=== PATIENT | female | born 1995 | race Caucasian/White ===

== ENCOUNTER 2024-03-01 14:23 | Inpatient (IN) ==
[2024-03-01 15:10] LABS: Appearance Urine Clear (Clear); Bilirubin Urine Negative (Negative); Blood Urine Negative (Negative); Color Urine Yellow; Glucose Urine UA Negative (Negative); Ketones Urine Negative (Negative); Leukocyte Esterase Urine Negative (Negative); Nitrite Urine Negative (Negative); Protein Urine Negative (Negative); Specific Gravity Urine 1.006 (1.000-1.030); Urobilinogen Urine Negative (Negative)
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
[2024-03-01 15:13] LABS: Basophils # (auto) 0.05 K/uL (0.00-0.20); Basophils % (auto) 0.5 %; Eosinophils # (auto) 0.22 K/uL (0.00-0.50); Eosinophils % (auto) 2.3 %; Hematocrit (blood only) 41.2 % (37.0-47.0); Hemoglobin 13.1 g/dl (12.0-16.0); Immature Granulocytes # (auto) 0.03 K/uL (0.01-0.20); Immature Granulocytes % (auto) 0.3 %; Lymphocytes # (auto) 2.81 K/uL (1.20-3.40); Lymphocytes % (auto) 29.7 %; Mean Corpuscular Hemoglobin 27.6 pg (25.0-34.0); Mean Corpuscular Hgb Conc 31.8 g/dL (32.0-36.0); Mean Corpuscular Volume 86.9 fL (80.0-100.0); Mean Platelet Volume 10.1 fL (9.4-12.4); Monocytes # (auto) 0.68 K/uL (0.11-0.59); Monocytes % (auto) 7.2 %; Neutrophils # (auto) 5.68 K/uL (1.40-6.50); Platelet Count 314 K/uL (130-400); RDW Coefficient of Variation 13.5 % (11.5-14.5); Red Blood Count 4.74 M/uL (4.20-5.40); White Blood Count 9.47 K/ul (4.8-10.8)
[2024-03-01 15:28] LABS: Pregnancy Test, Serum Negative (Negative)
[2024-03-01 15:34] LABS: Albumin Globulin Ratio 1.7 (0.9-2); Albumin Level 4.7 gm/dl (3.4-5.0); BUN Creatinine Ratio 9.2 (10-20); Bilirubin,Total 0.4 mg/dl (0.2-1.0); Creatinine Clr Calc Pharmacy 155.1 ml/min; Est GFR (African American) 121.1 ml/min; Est GFR (Non-African American) 104.5 ml/min; Globulin 2.7 gm/dl (2.5-4.0); Potassium 4.2 mmol/L (3.5-5.1); Total Protein 7.4 gm/dl (6.0-8.3)
[2024-03-01 15:44] LABS: Amphetamines+Metham, Urine Neg (Neg); Barbiturates, Urine Neg (Neg); Benzodiazepine, Urine Neg (Neg); Cocaine, Urine Neg (Neg); Fentanyl, Urine Neg (Neg); MDMA (Ecstacy), Urine Neg (Neg); Marijuana, Urine Neg (Neg); Methadone, Urine Neg (Neg); Opiate, Urine Neg (Neg); Phencyclidine, Urine Neg (Neg)
[2024-03-01 15:48] LABS: Thyroid Stimulating Hormone 1.581 uIu/ml (0.300-4.500)
[2024-03-01 15:50] LABS: Acetaminophen < 3 ug/ml (10-30); Salicylate < 3.0 mg/dl (3.0-30)
[2024-03-01] MEDS ORDERED: SODIUM CHLORIDE 0.65% NA SOLN 45 ML (OCEAN) PRN (17:09)
[2024-03-01] MEDS ORDERED: BISMUTH SUBSALICYLATE LIQD 236 ML PO PRN (17:09)
[2024-03-01] MEDS ORDERED: MAGNESIUM HYDROXIDE SUSP 30 ML UDC PO PRN (17:09)
[2024-03-01] MEDS ORDERED: ALUMINUM/MAGNESIUM SUSP 30 ML UDC PO PRN (17:09)
[2024-03-01] MEDS ORDERED: risperiDONE 0.25 MG TAB PO PRN (17:41)
[2024-03-01] MEDS: PANTOprazole 40 MG TAB PO SCH (19:04)
[2024-03-01] MEDS: lamoTRIgine 25 MG TAB PO SCH (21:06)
[2024-03-01] MEDS: hydrOXYzine HCl 25 MG TAB PO PRN (21:07)
[2024-03-01] MEDS: risperiDONE 0.5 MG TABLET PO SCH (21:07)
[2024-03-01] MEDS: GABAPENTIN 300 MG CAP PO SCH (21:07)
--- OUTSIDE RECORDS SUMMARY | 2024-03-02 05:20 | External Medical Summary | Summary of Care ---
Author Name Unknown Organization [facility] Address [address] [place] [address] Phone [phone] Care Team Providers Care Cloth Shrinking Machine Operator Name Role Phone Miriam Kay PA-C Primary Care Provider Reason for Referral * Precert (Within 10 days (routine)) - Pending Review Specialty Diagnoses / Procedures Referred By Contphu t Referred To Contact Radiology Diagnoses Pericardial cyst Procedures CT CHEST WO CONTRAST Arabella Mock PA-C [address] [place] [address] Referral ID Status Reason Start Date Expiration Date V isits Requested Visits Authorized [id number] Pending Review 10/11/[phone] Encounter Details Date Type Department Care Team (Late st Contact Info) Description 10/26/2023 2:45 PM EDT Telemedicine Cardiothoracic Surg [facility] [address] [place] [address] Bill Gibson MD [address] [place] [address] Pericardial cyst* Allergies No known active allergiesdocumented as of this encounter (statuses as of 10/26/2023) Medications Medication Sig Dispensed Refills Start Date End Date Status busPIRone (BUSPAR) 5 MG Tablet Take 5 mg by mouth 3 times a day. 0 Active lamoTRIgine 150 MG Oral Tablet (LaMICtal) Take 0.5 Tablets by mouth in the morning and 0.5 Tablets before bedtime. 0 11/04/2020 Active traMADol HCl 50 MG Oral Tablet (Ultram) Take 1 Tablet by mouth every 6 hours as needed for Pain, Severe. 12 Tablet 0 04/23/2021 Active Additional Information Patient not taking.Reported on 05/08/2021 Escitalopram Oxalate 20 MG Oral Tablet (Lexapro) Take 20 mg by mouth daily. 0 03/19/2021 Active Docusate Sodium 100 MG Oral Capsule (Colace) Take 1 Capsule by mouth 2 times a day. 60 Capsule 5 05/08/2021 Active Additional Information Patient not taking.Reported on 04/12/2023 buPROPion HCl 75 MG Oral Tablet (Wellbutrin) Take 1 Tablet by mouth in the morning. 0 Active risperiDONE 0.5 MG Oral Tablet (RisperDAL) Take 1 Tablet by mouth in the morning. 0 Active hydrOXYzine HCl 10 MG Oral Tablet (Atarax) Take 0.5 Tablets by mouth every 6 hours as needed. 0 Active [place] Carbonate 150 MG Oral Capsule (Eskalith) Take 1 Capsule by mouth in the morning. 0 Active documented as of this encounter (statuses as of 10/26/2023) Active Problems Problem Noted Date Diagnosed Date Molar 05/06/2020 Obesity, Class II, BMI 35-39.9 09/19/2018 Overview: DISCUSSION: -Discussed obstetrical risks associated with class II obesity (pre- BMI of 35 to 39.9) including increased incidence of: spontaneous miscarriage, recurrent loss, diabetes in , hypertension/preeclampsia, IUFD, macrosomia and shoulder dystocia, hemorrhage or infection, venous thromboembolism, increased length of labor and delivery, complications with anesthesia, as well as a possibly increased risk of congenital anomalies (neural tube defects, cardiovascular, orofacial). - Reviewed that the accuracy of ultrasound at diagnosing anomalies is significantly decreased for women with an increased BMI. RECOMMENDATIONS: -Recommend restricting weight gain during to 11-20 pounds. Patient should be referred for a nutrition consult. -Recommend evaluation for signs and symptoms (snoring, excessive daytime sleepiness witnessed apnea or unexplained hypoxia) of obstructive sleep apnea. If any of these are present, referral to Sleep Medicine specialist for further evaluation should be considered. -Recommend performing gestational diabetes mellitus screen now (if not performed at first visit) and repeat again at 26-28 weeks if early screen is normal. - Recommend Maternal- Medicine ultrasound for anatomy at 20 weeks and for growth every 4 weeks thereafter. Anxiety and depression 09/19/2018 Overview: Not on medications. States she was on Wellbutrin, Buspar, and Topamax - started 2 months with her G1. States she tapered off of them prior to . documented as of this encounter (statuses as of 10/26/2023) Resolved Problems Problem Noted Date Diagnosed Date Resolved Date Ruptured right tubal ectopic causing hemoperitoneum 04/23/2021 04/23/2021 Missed 05/06/2020 05/06/2020 Gestational hypertension wit hout significant proteinuria in third trimester 01/04/2019 9 Supervision of high risk pre gnancy, antepartum 10/26/2018 01/06/2019 Blood type O+ 10/26/2018 01/04/2019 Overview: Per [facility] records Hx of preeclampsia, prior pr egnancy, currently 09/19/2018 01/06/2019 Overview: Pt states she had preeclampsia Smoker 09/19/2018 01/04/2019 Overview: 1-2 cigarettes/week History of gestational hypertension 09/19/2018 01/04/2019 Overview: States she was not on medications documented as of this encounter (statuses as of 10/26/2023) Immunizations Name Administration Dates Next Due TDAP (age 10 and older)(Boostrix) 10/26/2018 documented as of this encounter Social History Tobacco Use Types Packs/Day Years Used Date Smoking Tobacco: Former Cigarettes Smokeless Tobacco: Never Alcohol Use Standard Drinks/Week Comments No 0 (1 standard drink = 0.6 oz pur e alcohol) AUDIT-C Answer Date Recorded Frequency of Alcohol Consumption Never 09/19/2018 Average Number of Drinks Not on file 019 Frequency of Binge Drinking Not on file 02/2019 PHQ-2 Answer Date Recorded PHQ-2 Score 2 09/19/2018 [place] Depression Scale Answer Date Recorded [place] Depression Scale Score 16 07/25/2019 The thought of harming myself has occurred to me . (Pt Reported) 07/25/2019 Sex and Gender Information Value Date Recorded Sex Assigned at Not on file Gender Identity Not on file Sexual Orientation Not on file Job Start Date Occupation Industry Not on file Not on file Not on file documented as of this encounter Functional Status Functional Status Response Date of Assess ment Are you deaf or do you have serious difficulty h earing? No 05/02/2020 Are you blind or do you have serious difficulty seeing, even when wearing glasses? No 05/02/2020 Do you have serious difficul ty walking or climbing stairs? (5 years old or older) No 05/02/2020 Do you have difficulty dress ing or bathing? (5 years old or older) No 05/02/2020 Because of a physical, menta l, or emotional condition, do you have difficulty doing errands alone such as visiting a doctor s office or shopping? (15 years old or older) No 05/02/20 20 Cognitive Status Response Date of Assessm ent Because of a physical, menta l, or emotional condition, do you have serious difficulty concentrating, remembering, or making decisions? (5 years old or older) No 05/02/2020 documented as of this encounter Plan of Treatment Upcoming Encounters Date Type Department Care Team (Late st Contact Info) Description 10/22/2024 8:00 AM EDT Imaging Radiology [address] [address] 10/31/2024 2:45 PM EDT Telemedicine Cardiothoracic Surg [facility] [address] [place] [address] Bill Gibson MD [address] [place] [address] Scheduled Orders Name Type Priority Associated Diagnoses Orde r Schedule CT CHEST WO CONTRAST Medical Imaging Routine Pericardial cyst Expected: 10/11/2024, Expires: 11/25/2024 Health Maintenance Due Date Last Done Comments HIV Screening 02/04/2008 Hepatitis C Screening 2011 Hepatitis B (1 of 3 - 19+ 3-dose series) 02/04/2012 Pap Smear 01/30/2021 01/30/2018 Cervical Cancer Screening 2023 HPV/Co-Test 2023 COVID-19 Vaccine (1 - 2022-2 4 season) 2023 Influenza Vaccine (FLU shot) (Season Ended) 2024 04/06/2017, 02/12/2009 DTaP,Tdap,and Td Vaccines (3 - Td or Tdap) 10/26/2028 10/26/2018, 06/10/2017 GARDASIL-HPV IMMUNIZATION SERIES Aged Out No longer eligible b ased on patient's age to complete this topic MENINGOCOCCAL (MENACTRA/MENVEO) Aged Out No longer eligible b ased on patient's age to complete this topic Pneumococcal Vaccine: Pediatrics (0 to 5 Years) and At-Risk Patients (6 to 64 Years) Aged Out No longer eligible b ased on patient's age to complete this topic documented as of this encounter Medical Devices Not on filedocumented as of this encounter Visit Diagnoses Diagnosis 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 Question Answer Comments Discussion of Advance Directives occurred with: Not Discussed Does the patient have a Living Will? No Does the patient have Health Care Power of Contract Driver? No Code Status History Code Status Date Activated Date Inactivated Comments Full Code 01/04/2019 12:15 PM 01/06/2019 3:27 PM This order reflects the patients wishes and were consensually agreed upon. Care Teams Cloth Shrinking Machine Operator Relationship Specialty Start Date End Date Miriam Kay PA-C [address] [place] [address] [address] [id number] PCP - General Physician Dredge Deckhand 01/05/19 documented as of this encounter
[2024-03-02] MEDS: ACETAMINOPHEN 325 MG TAB PO PRN (08:34)
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
[2024-03-02] MEDS: hydrOXYzine HCl 25 MG TAB PO PRN (10:49)
[2024-03-02] MEDS: ARIPIprazole 1 MG/ML ORAL SOLN 150 ML BTL PO SCH ×2 (17:20→22:12)
[2024-03-02] MEDS: NYSTATIN POWDER 15GM BTL EXT SCH (21:36)
[2024-03-02] MEDS: PANTOprazole 40 MG TAB PO SCH (21:37)
[2024-03-02] MEDS: lamoTRIgine 25 MG TAB PO SCH (21:38)
[2024-03-02] MEDS ORDERED: NON-FORMULARY MEDICATION (Gabapentin 300 mg Tablet) PO SCH (22:00)
[2024-03-03] MEDS: SERTRALINE HCL 50 MG TABLET PO SCH (09:10)
[2024-03-03] MEDS: lamoTRIgine 25 MG TAB PO SCH (09:10)
[2024-03-03] MEDS: ARIPiprazole 5 MG TAB PO SCH (09:10)
[2024-03-03 09:17] LABS: Chol HDL Ratio 4.7 (0-5)
[2024-03-03 10:03] LABS: Estimated Average Glucose 105 mg/dl; Hemoglobin A1C 5.3 % (4.5-5.6)
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
[2024-03-04] MEDS: ARIPiprazole 5 MG TAB PO ONE (12:29)
[2024-03-04] MEDS: GABAPENTIN 300 MG CAP PO SCH (21:13)
[2024-03-05] MEDS: ARIPiprazole 5 MG TAB PO SCH (09:00)
[2024-03-05] MEDS: CYANOCOBALAMIN (B-12) 100 MCG TABLET PO SCH (10:11)
[2024-03-05] MEDS: CHOLECALCIFEROL 125 MCG (5,000 UNITS) TAB PO SCH (10:11)
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
== END 2024-03-06 11:45 | disposition home or self-care (01) | DRG 885 ==
LOC: ED 14:23 → 3S 17:09